=== PATIENT | male | born 1975 | race Caucasian/White ===

== ENCOUNTER 2017-02-09 00:45 | Observation (INO) | payer OTHER ==
[2017-02-09] MEDS ORDERED: TDAP ADULT 0.5 ML INJ (BOOSTRIX) IM ONE (01:30)
--- NOTE | 2017-02-09 02:24 | EDPHY ---
H & P Stated Complaint: stung last night by wasp, swelling and redness HPI/ROS: HPI CHIEF COMPLAINT: Left ankle swelling, redness, pain. HISTORY OF PRESENT ILLNESS: This patient very pleasant 41-year-old male significant past medical history for psoriasis, as well as hypertension, presents emergency room with left ankle pain, swelling, redness and warmth. No fever. Progressively got worse over the past 24 hours. He states he was walking dog something bit him on the medial aspect of his left ankle. It has progressively got worse. He now has a blister that popped. With yellow drainage. The redness has been streaking up his leg with worsening pain. No fever. Past Medical History: No medical history except for hypertension, psoriasis Past Surgical History: No recent surgery Social History: Denies daily use drugs alcohol tobacco products. Family History: Noncontributory ROS REVIEW OF SYSTEMS: A comprehensive 10 point review of systems is otherwise negative aside from elements mentioned in the history of present illness. Exam Constitutional triage nursing summary reviewed, vital signs reviewed, awake/ alert. Eyes normal conjunctivae and sclera, EOMI, PERRLA. HENT normal inspection, atraumatic, moist mucus membranes, no epistaxis, neck supple/ no meningismus, no raccoon eyes. Respiratory clear to auscultation bilaterally, normal breath sounds, no respiratory distress, no wheezing. Cardiovascular rate normal, regular rhythm, no murmur, no edema, distal pulses normal. Gastrointestinal soft, non-tender, no rebound, no guarding, normal bowel sounds, no distension, no pulsatile mass. Genitourinary no CVA tenderness. Musculoskeletal no midline vertebral tenderness, full range of motion, no calf swelling, no tenderness of extremities, no meningismus, good pulses, neurovascularly intact. Skin Left Ankle: Tender palpation over the medial aspect of the left ankle and swelling redness and warmth present. Foot is neurovascular intact good pulse. Blister present. That is ruptured. Yellow drainage. No crepitus on exam. Significant swelling present. Redness mild streaking up the left tibia. Neurologic awake, alert and oriented x 3, AAOx3, moves all 4 extremities equally, motor intact, sensory intact, CN II-XII intact, normal cerebellar, normal vision, normal speech. Psychiatric normal mood/affect. Heme/Lymph/Immune no lymphadenopathy. Differential Diagnosis: Includes but is not limited to in a particular order, left leg cellulitis, localized left ankle inflammation, left ankle cellulitis, strep infection, MRSA infection Medical Decision Making: Plan for this patient x-ray left ankle, blood work, IV vancomycin, possible admission. Re-evaluation: 0335AM: I did re-evaluate the patient. His x-ray does not show gas or does show soft tissue swelling. No osteo changes. Patient has redness, swelling and warmth and pain with elevated white count elevated CRP concerning for infection. He has received IV vancomycin here in emergency room. He will be admitted to the hospitalist service for a left lower extremity cellulitis. He is agreeable for this plan. No crepitus or gas seen on exam or x-ray. Dr. Reyes agrees for admission. Source: Patient - Personal History Current Tetanus Diphtheria and Acellular Pertussis (TDAP): Unsure - Medical/Surgical History Hx Asthma: No Hx Chronic Respiratory Disease: No Hx Diabetes: No Hx Cardiac Disease: No Hx Renal Disease: No Hx Cirrhosis: No Hx Alcoholism: No Hx HIV/AIDS: No Hx Splenectomy or Spleen Trauma: No Other PMH: htn, hiatal hernia - Social History Smoking Status: Never smoked Constitutional: Initial Vital Signs Temperature (C) 37.5 C 02/09/17 00:51 Heart Rate 102 H 02/09/17 00:51 Respiratory Rate 20 02/09/17 00:51 Blood Pressure 134/86 H 02/09/17 00:51 O2 Sat (%) 94 02/09/17 00:51 O2 Delivery Mode Room Air Allergies/Adverse Reactions: No Known Allergies Allergy (Unverified 02/09/17 00:48) Home Medications: Medication Instructions Recorded Aspirin 02/09/17 Nexium 02/09/17 Norvasc 02/09/17 Ramipril 02/09/17 Medical Decision Making - Data Points Laboratory Results: Laboratory Results 02/09/17 02:25 02/09/17 02:25 02/09/17 02/09/17 02:25 02:25 WBC 12.50 10^3/uL H 10^3/uL (3.80-9.50) RBC 4.35 10^6/uL L 10^6/uL (4.40-6.38) Hgb 15.1 g/dL g/dL (13.7-17.5) Hct 43.8 % % (40.0-51.0) MCV 100.7 fL H fL (81.5-99.8) MCH 34.7 pg H pg (27.9-34.1) MCHC 34.5 g/dL g/dL (32.4-36.7) RDW 12.6 % % (11.5-15.2) Plt Count 364 10^3/uL 10^3/uL (150-400) MPV 9.4 fL fL (8.7-11.7) Neut % (Auto) 75.7 % H % (39.3-74.2) Lymph % (Auto) 15.8 % % (15.0-45.0) Hart % (Auto) 6.3 % % (4.5-13.0) Eos % (Auto) 1.8 % % (0.6-7.6) Baso % (Auto) 0.2 % L % (0.3-1.7) Nucleat RBC Rel Count 0.0 % % (0.0-0.2) Absolute Neuts (auto) 9.46 10^3/uL H 10^3/uL (1.70-6.50) Absolute Lymphs (auto) 1.98 10^3/uL 10^3/uL (1.00-3.00) Absolute Monos (auto) 0.79 10^3/uL 10^3/uL (0.30-0.80) Absolute Eos (auto) 0.22 10^3/uL 10^3/uL (0.03-0.40) Absolute Basos (auto) 0.03 10^3/uL 10^3/uL (0.02-0.10) Absolute Nucleated RBC 0.00 10^3/uL 10^3/uL (0-0.01) Immature Gran % 0.2 % % (0.0-1.1) Immature Gran # 0.02 10^3/uL 10^3/uL (0.00-0.10) ESR 7 MM/HR MM/HR (0-15) Sodium 142 mEq/L mEq/L (134-144) Potassium 4.6 mEq/L mEq/L (3.5-5.2) Chloride 101 mEq/L mEq/L (97-110) Carbon Dioxide 25 mEq/l mEq/l (22-31) Anion Gap 16 mEq/L mEq/L (8-16) BUN 10 mg/dL mg/dL (7-23) Creatinine 0.9 mg/dL mg/dL (0.7-1.3) Estimated GFR > 60 Glucose 91 mg/dL mg/dL (70-100) Calcium 9.9 mg/dL mg/dL (8.5-10.4) C-Reactive Protein 25.2 mg/L H mg/L (<10.0) Medications Given: Discontinued Medications Diphtheria/Tetanus/Acell Pertussis (Boostrix) 0.5 ml IM .ONCE ONE Stop: 02/09/17 01:31 Last Admin: 02/09/17 01:34 Dose: 0.5 ml Vancomycin/Sodium Chloride (Vancomycin 1 Gm (Premix)) 250 mls @ 250 mls/hr IV EDNOW ONE PRN Reason: Protocol Stop: 02/09/17 03:28 Last Admin: 02/09/17 02:49 Dose: 250 mls Departure - Departure Disposition: [facility] Inpatient Acute Clinical Impression: Cellulitis, leg Qualifiers: Laterality: left Qualified Code(s): L03.116 - Cellulitis of left lower limb Condition: Good Referrals: V[facility] [Other] - As per Instructions
[2017-02-09] MEDS ORDERED: VANCOMYCIN HCL/NORMAL SALINE 250 ML IV ONE (02:29)
[2017-02-09 02:36] LABS: % IMMATURE GRANULYOCYTES 0.2 % (0.0-1.1); ABSOLUTE IMMATURE GRANULOCYTES 0.02 10^3/uL (0.00-0.10); ADD DIFF? NO; ADD MORPH? NO; ADD SCAN? NO; ATYPICAL LYMPHOCYTE FLAG 0 (0-99); FRAGMENT RBC FLAG 0 (0-99); HEMATOCRIT 43.8 % (40.0-51.0); HEMOGLOBIN 15.1 g/dL (13.7-17.5); LEFT SHIFT FLG 0 (0-99); LIPEMIA HEMOLYSIS FLAG 90 (0-99); MEAN CELL HEMOGLOBIN 34.7 pg (27.9-34.1); MEAN CELL HEMOGLOBIN CONCENTR. 34.5 g/dL (32.4-36.7); MEAN CELL VOLUME 100.7 fL (81.5-99.8); MEAN PLATELET VOLUME 9.4 fL (8.7-11.7); PLATELET CLUMPS FLAG 0 (0-99); PLATELET COUNT 364 10^3/uL (150-400); RED BLOOD CELL COUNT 4.35 10^6/uL (4.40-6.38); RED CELL DISTRIBUTION WIDTH 12.6 % (11.5-15.2)
[2017-02-09 02:53] LABS: ANION GAP 16 mEq/L (8-16); C-REACTIVE PROTEIN 25.2 mg/L (<10.0); CALCIUM 9.9 mg/dL (8.5-10.4); CARBON DIOXIDE 25 mEq/l (22-31); CHLORIDE 101 mEq/L (97-110); CREATININE 0.9 mg/dL (0.7-1.3); GLOMERULAR FILTRATION RATE > 60; GLUCOSE 91 mg/dL (70-100); POTASSIUM 4.6 mEq/L (3.5-5.2); SODIUM 142 mEq/L (134-144)
[2017-02-09 02:54] LABS: SEDIMENTATION RATE 7 MM/HR (0-15)
[2017-02-09] MEDS ORDERED: ONDANSETRON DISINTEGRATING 4 MG TAB PO PRN (04:55)
[2017-02-09] MEDS ORDERED: oxyCODONE IR 5 MG TAB PO PRN (04:55)
[2017-02-09] MEDS ORDERED: ONDANSETRON 4 MG/2 ML VIAL IVP PRN (04:55)
[2017-02-09] MEDS ORDERED: ACETAMINOPHEN 325 MG TAB PO PRN (04:55)
--- NOTE | 2017-02-09 05:54 | PDGENHP ---
History and Physical - Chief Complaint Leg swelling - History of Present Illness 41 yo M w/ HTN and psoriasis presenting with several days of progressive leg pain, redness, and swelling. Patient describes being stung in the LLE by what he thinks was a wasp about 4 days ago. Over the following days he noted some LLE swelling, which then exhibited rapidly spreading redness on the day of presentation. He also complains of pain and warmth on the leg, but denies systemic symptoms such as fever and chills. History Information - Allergies/Home Medication List Allergies/Adverse Reactions: No Known Allergies Allergy (Unverified 02/09/17 00:48) Home Medications: Aspirin 02/09/17 [Last Taken Unknown] Nexium 02/09/17 [Last Taken Unknown] Norvasc 02/09/17 [Last Taken Unknown] Ramipril 02/09/17 [Last Taken Unknown] I have personally reviewed and updated: family history, medical history - Past Medical History hypertension Additional medical history: Psoriasis - Surgical History Reports: no pertinent surgical hx - Family History Positive for: diabetes type II, stroke - Social History Smoking Status: Never smoked Drug Use: None Review of Systems ROS: 10pt was reviewed & negative except for what was stated in HPI & below Physical Exam Temp Pulse Resp BP Pulse Ox 37.1 C 89 16 122/90 H 96 02/09/17 04:31 02/09/17 04:31 02/09/17 04:31 02/09/17 04:31 02/09/17 04:31 Constitutional: no apparent distress, appears nourished Eyes: PERRL, EOMI Ears, Nose, Mouth, Throat: moist mucous membranes, no oral mucosal ulcers Cardiovascular: regular rate and rhythym, no murmur, rub, or gallop Respiratory: no respiratory distress, clear to auscultation Gastrointestinal: normoactive bowel sounds, soft, non-tender abdomen Skin: warm, erythema (LLE area of warmth and erythema with blister noted above L medial malleolus), rash (Various scaly, erythematous patches noted in extremities) Musculoskeletal: full muscle strength, no muscle tenderness Neurologic: AAOx3, CN II-XII Intact Psychiatric: interacting appropriately, not anxious Lab Data & Imaging Review 02/09/17 02:25 02/09/17 02:25 WBC 12.50 10^3/uL (3.80-9.50) H 02/09/17 02:25 RBC 4.35 10^6/uL (4.40-6.38) L 02/09/17 02:25 Hgb 15.1 g/dL (13.7-17.5) 02/09/17 02:25 Hct 43.8 % (40.0-51.0) 02/09/17 02:25 MCV 100.7 fL (81.5-99.8) H 02/09/17 02:25 MCH 34.7 pg (27.9-34.1) H 02/09/17 02:25 MCHC 34.5 g/dL (32.4-36.7) 02/09/17 02:25 RDW 12.6 % (11.5-15.2) 02/09/17 02:25 Plt Count 364 10^3/uL (150-400) 02/09/17 02:25 MPV 9.4 fL (8.7-11.7) 02/09/17 02:25 Neut % (Auto) 75.7 % (39.3-74.2) H 02/09/17 02:25 Lymph % (Auto) 15.8 % (15.0-45.0) 02/09/17 02:25 [place] % (Auto) 6.3 % (4.5-13.0) 02/09/17 02:25 Eos % (Auto) 1.8 % (0.6-7.6) 02/09/17 02:25 Baso % (Auto) 0.2 % (0.3-1.7) L 02/09/17 02:25 Nucleat RBC Rel Count 0.0 % (0.0-0.2) 02/09/17 02:25 Absolute Neuts (auto) 9.46 10^3/uL (1.70-6.50) H 02/09/17 02:25 Absolute Lymphs (auto) 1.98 10^3/uL (1.00-3.00) 02/09/17 02:25 Absolute Monos (auto) 0.79 10^3/uL (0.30-0.80) 02/09/17 02:25 Absolute Eos (auto) 0.22 10^3/uL (0.03-0.40) 02/09/17 02:25 Absolute Basos (auto) 0.03 10^3/uL (0.02-0.10) 02/09/17 02:25 Absolute Nucleated RBC 0.00 10^3/uL (0-0.01) 02/09/17 02:25 Immature Gran % 0.2 % (0.0-1.1) 02/09/17 02:25 Immature Gran # 0.02 10^3/uL (0.00-0.10) 02/09/17 02:25 ESR 7 MM/HR (0-15) 02/09/17 02:25 Sodium 142 mEq/L (134-144) 02/09/17 02:25 Potassium 4.6 mEq/L (3.5-5.2) 02/09/17 02:25 Chloride 101 mEq/L (97-110) 02/09/17 02:25 Carbon Dioxide 25 mEq/l (22-31) 02/09/17 02:25 Anion Gap 16 mEq/L (8-16) 02/09/17 02:25 BUN 10 mg/dL (7-23) 02/09/17 02:25 Creatinine 0.9 mg/dL (0.7-1.3) 02/09/17 02:25 Estimated GFR > 60 02/09/17 02:25 Glucose 91 mg/dL (70-100) 02/09/17 02:25 Calcium 9.9 mg/dL (8.5-10.4) 02/09/17 02:25 C-Reactive Protein 25.2 mg/L (<10.0) H 02/09/17 02:25 Imaging Review: LLE XR without clear abnormality. Visualized and Interpreted Chest x-ray results: Yes Assessment & Plan Assessment: 41 yo M with HTN and psoriasis presents with LLE cellulitis. Plan: 1. LLE Cellulitis - Overall appears mild with only SIRS criteria being WBC of 12.5. Per history, precipitating factor likely insect bite. Patient does have psoriasis leading to abnormal skin barrier but does not take any immunosuppressive drugs. - Vancomycin IV - Suspect can transition to PO rather quickly 2. Hypertension - Well controlled with home Ramipril and Norvasc 3. Psoriasis - Not on medications. Mildly active disease evidenced by multiple scaly, erythematous patches on extremities. Diet - Regular Code - Full Ppx - Low risk, ambulate TID Dispo - Admit to observation, expect stay of <2 MN noting lack of systemic symptoms.
[2017-02-09 05:59] LABS: % IMMATURE GRANULYOCYTES 0.5 % (0.0-1.1); ABSOLUTE IMMATURE GRANULOCYTES 0.07 10^3/uL (0.00-0.10); ADD DIFF? NO; ADD MORPH? NO; ADD SCAN? NO; ATYPICAL LYMPHOCYTE FLAG 0 (0-99); FRAGMENT RBC FLAG 0 (0-99); HEMATOCRIT 41.4 % (40.0-51.0); HEMOGLOBIN 14.1 g/dL (13.7-17.5); LEFT SHIFT FLG 0 (0-99); LIPEMIA HEMOLYSIS FLAG 90 (0-99); MEAN CELL HEMOGLOBIN 34.3 pg (27.9-34.1); MEAN CELL HEMOGLOBIN CONCENTR. 34.1 g/dL (32.4-36.7); MEAN CELL VOLUME 100.7 fL (81.5-99.8); MEAN PLATELET VOLUME 9.7 fL (8.7-11.7); PLATELET CLUMPS FLAG 20 (0-99); PLATELET COUNT 343 10^3/uL (150-400); RED BLOOD CELL COUNT 4.11 10^6/uL (4.40-6.38); RED CELL DISTRIBUTION WIDTH 12.6 % (11.5-15.2)
[2017-02-09 06:16] LABS: ANION GAP 13 mEq/L (8-16); CALCIUM 9.4 mg/dL (8.5-10.4); CARBON DIOXIDE 23 mEq/l (22-31); CHLORIDE 102 mEq/L (97-110); CREATININE 0.8 mg/dL (0.7-1.3); GLOMERULAR FILTRATION RATE > 60; GLUCOSE 93 mg/dL (70-100); POTASSIUM 4.3 mEq/L (3.5-5.2); SODIUM 138 mEq/L (134-144)
--- NOTE | 2017-02-09 11:19 | HOSPPROG ---
Hospitalist Progress Note Assessment/Plan: 41 yo M with HTN and psoriasis presents with LLE cellulitis. *Left lower extremity cellulitis after getting a wasp sting to his leg started on vancomycin will ask ID to weigh in *leukocytosis due to the above * hypertension bp 107/59 home meds resumed * psoriasis not on treatment *Plan: Dr Tellez to further evaluate Subjective: Bernard said his leg is steam press tender. Objective: Vital Signs Temp Pulse Resp BP Pulse Ox 37.0 C 79 20 107/69 93 02/09/17 08:00 02/09/17 08:00 02/09/17 08:00 02/09/17 08:00 02/09/17 08:00 Laboratory Results 02/09/17 05:34 02/09/17 05:34 02/08/17 02/09/17 02/10/17 05:59 05:59 05:59 Intake Total 450 Balance 450 - Physical Exam Constitutional: uncomfortable Eyes: PERRL Ears, Nose, Mouth, Throat: hearing normal Respiratory: no respiratory distress Skin: other (left lower extremity with erythema and swelling/ increase redness around the ankle area) Musculoskeletal: full muscle strength Neurologic: AAOx3 ICD10 Worksheet Patient Problems: Problems Problem Status Onset Cellulitis, leg Acute
--- NOTE | 2017-02-09 12:52 | GCON ---
[f rep st] CONSULTATION INFECTIOUS DISEASE CONSULTATION DATE OF CONSULTATION: 02/09/2017 Requesting provider is Luh Duran, nurse practitioner. REASON FOR CONSULTATION: Left lower extremity cellulitis. HISTORY OF PRESENT ILLNESS: The patient is a 41-year-old male with a past medical history of hypert ension and psoriasis, whom I am asked to see in consultation for left lower extremity cellulitis. T he patient describes being out walking his dogs on morning when he felt a sting to the righ t ankle. He believes this was from a flying insect. He put ice on the area after he had returned h ome. 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 Later, he developed blistering and swelling, with associated redness, warmth and tendern ess over the lower extremity, prompting his evaluation in the emergency department. Laboratory eval uation revealed a mild leukocytosis. The findings were felt to be consistent with a left lower extr emity cellulitis, and the patient was started on vancomycin. He does not have a prior history of sk in and soft tissue infection or MRSA. He does have psoriasis, for which he is on no immunosuppressi ve therapy. The erythema has receded significantly since admission, although he has persistent swel ling and tenderness. He has not experienced associated fevers, chills, or night sweats. There has been no nausea, vomiting or diarrhea. Given the above findings, I am now asked to assist in his carlito oing management. PAST MEDICAL HISTORY: Hypertension, psoriasis. PAST SURGICAL HISTORY: Unremarkable. CURRENT MEDICATIONS: Vancomycin 1.5 g IV q.12 hours, status post Tdap, ramipril 5 mg p.o. daily, Pr otonix 40 mg p.o. daily, Bystolic 5 mg p.o. daily, aspirin 81 mg p.o. daily. ALLERGIES: No known drug allergies. SOCIAL HISTORY: The patient does not smoke. He drinks at least [address] ug use history. FAMILY HISTORY: Father with pancreatitis and early-onset stroke. REVIEW OF SYSTEMS: Outside that noted in the HPI, the remainder of the 10-system review is unremark able except that the patient did have some inflammatory changes over his right eyelid, which have re sponded to topical therapies. PHYSICAL EXAMINATION: VITAL SIGNS: Temperature maximum 37.5, temperature current 36.9, heart rate 76, respiratory rate 18, blood pressure 118/76, oxygen saturation 96% on room air. GENERAL: The corwin soliz is an obese male in no acute distress. He appears nontoxic. HEENT: There is no scleral icte little, conjunctival injection, or conjunctival petechiae. There is minimal erythema with some skin fl aking over the eyelid on the right. There is no conjunctival drainage. There is no nasal discharge . The oropharynx shows no thrush. The mucous membranes are moist. The dentition is in fair repair . NECK: Supple, without lymphadenopathy or palpable thyromegaly. CHEST: Clear to auscultation bi laterally, without adventitious sounds. The respiratory effort is normal. CARDIOVASCULAR: Regular rate and rhythm, without murmurs, gallops, or rubs. ABDOMEN: Soft, nontender, nondistended. Ther e is no palpable organomegaly. Bowel sounds are present. MUSCULOSKELETAL: The left ankle shows ed esteban with some blistering and hemorrhagic appearance over the medial malleolar region, with the hemor rhagic appearance extending into the base of the foot. There is warmth with edema and minimal eryth esteban extending toward the knee. The erythema has receded significantly from the previously demarcate d lines. There is no palpable fluctuance. The area is tender to palpation. There is no pain with range of motion of the ankle joint. SKIN: See musculoskeletal; there are scattered plaques of psor iasis. There are no stigmata of endocarditis. The skin is warm and dry to touch. LYMPHATICS: No cervical or supraclavicular nodes. There are no areas of lymphangitis in the left lower extremity. NEUROLOGIC: The patient is alert and interacts appropriately with the examiner. Cranial nerves 2- 12 are grossly intact. Sensation was grossly intact. Muscle tone and bulk are normal. LABORATORY DATA: White blood cell count 13.8, hematocrit 41.4, platelets 343, neutrophils 77%. Ser um creatinine is 0.8. Blood cultures x2 sets are pending. Ankle x-ray shows no abnormalities other than soft tissue swelling. IMPRESSION: Left lower extremity cellulitis after probable insect sting: He may have some element of hypersensitivity, but suspect there is superimposed cellulitis. Most likely, this will be due to beta-hemolytic streptococci or Staphylococcus aureus. No purulence or prior history of MRSA to sug gest this as an etiology. Clinically, he is responding currently to vancomycin therapy. RECOMMENDATIONS: 1. Ancef 2 g IV q.8 hours. 2. Discontinue vancomycin. 3. Continue lower extremity elevation. 4. Continue to follow the clinical response to the above measures. I think he requires continued h ospitalization currently for IV antibiotic therapy, with repeat assessment and plan for tomorrow. Laila vargas may be able to transition to oral antibiotic therapy in the next 24-48 hours. Thank you for this consultation. We will continue to follow the patient with you. /[id number]/MODL
[2017-02-09] MEDS: ceFAZolin 2 GM/DEXTROSE 100 ML IV SCH ×2 (13:00→22:19)
[2017-02-09] MEDS: NEO/POLYMYX B SULF/DEXAMETH 5 ML OPHT.BTL RTEYE SCH ×3 (13:08→22:19)
[2017-02-09] MEDS: RAMIPRIL 5 MG CAP PO SCH (13:08)
[2017-02-09] MEDS: NEBIVOLOL HCL 5 MG TAB PO SCH (13:09)
--- NOTE | 2017-02-09 14:22 | ASMTCASEMG ---
Living Arrangements What is your living Answers: With Spouse arrangement? Who do you live with? Discharge Plan Comments Coordination Status Comments Notes: Pt. is a 41-year-old man admitted w/ L leg cellulitis. May have been stung by a flying insect that contributed to cellulitis. Hx. HTN and psoriasis. Pt. lives w/ his , Angela. Likely to d/c home independenly when ready. CM available should d/c POC change. Date Signed: 02/09/2017 02:21 PM Electronically Signed By:Leeann Jennings
[2017-02-09] MEDS ORDERED: VANCOMYCIN 1.5 GM in D5W 250 ML IV SCH (15:00)
[2017-02-09 22:57] VITALS: O2SAT 95
[2017-02-10] MEDS: NEO/POLYMYX B SULF/DEXAMETH 5 ML OPHT.BTL RTEYE SCH ×4 (02:11→13:49)
[2017-02-10] MEDS: ceFAZolin 2 GM/DEXTROSE 100 ML IV SCH (05:24)
[2017-02-10 08:20] VITALS: BP 110/77; PULSE 64; RESP 14; TEMP 97.4
[2017-02-10] MEDS: NEBIVOLOL HCL 5 MG TAB PO SCH (08:29)
[2017-02-10] MEDS: RAMIPRIL 5 MG CAP PO SCH (08:30)
[2017-02-10] MEDS ORDERED: PANTOPRAZOLE SODIUM 40 MG TAB PO SCH (09:00)
[2017-02-10] MEDS ORDERED: NON-FORMULARY NEW DRUG (Esomeprazole Mag Trihydrate [Nexium] 40 MG) PO SCH (09:00)
[2017-02-10] MEDS ORDERED: ASPIRIN EC 81 MG TAB PO SCH (09:00)
--- NOTE | 2017-02-10 10:17 | HOSPPROG ---
Hospitalist Progress Note Assessment/Plan: 41 yo M with HTN and psoriasis presents with LLE cellulitis. *Left lower extremity cellulitis with some associated hypersensitivity after getting a wasp sting to his leg Ancef much improved/has a small blister on the talus side *leukocytosis due to the above * hypertension bp 110/77 home meds resumed * psoriasis not on treatment *Plan: will await input from Dr Tellez/ kimber pedro later today or tomorrow Subjective: Bernard is feeling much better today/ has no complaints. Objective: Vital Signs Temp Pulse Resp BP Pulse Ox 36.3 C 64 14 110/77 95 02/10/17 08:00 02/10/17 08:00 02/10/17 08:00 02/10/17 08:00 02/10/17 08:00 Laboratory Results 02/09/17 05:34 02/09/17 05:34 02/09/17 02/10/17 02/11/17 05:59 05:59 05:59 Intake Total 450 Balance 450 - Physical Exam Constitutional: no apparent distress, appears nourished, not in pain Eyes: PERRL Ears, Nose, Mouth, Throat: hearing normal Cardiovascular: regular rate and rhythym Respiratory: no respiratory distress Skin: warm, other (left lower ext w less swelling, less redness, small blister on talus side) Neurologic: AAOx3 Psychiatric: interacting appropriately, not anxious ICD10 Worksheet Patient Problems: Problems Problem Status Onset Cellulitis, leg Acute
[2017-02-10] MEDS ORDERED: cefTRIAXone 2 GM in D5W 50 ML IV SCH (12:30)
--- NOTE | 2017-02-10 13:20 | PCMIDPN ---
Assessment/Plan: Assessment/Plan: * Left lower extremity cellulitis: Significant clinical improvement with elevation and IV antibiotics. Will give single dose of ceftriaxone for long- acting affect prior to discharge. Plan to begin Augmentin 875 twice daily x7 days tomorrow. Side effects of Augmentin discussed with patient today. Will arrange for follow-up in my office later this week. 02/10/17 13:17 02/10/17 13:18 Subjective: Patient feels significantly improved with less ankle swelling and pain. Lower leg significantly softer. Objective: Vital Signs Temp Pulse Resp BP Pulse Ox 36.3 C 64 14 110/77 95 02/10/17 08:00 02/10/17 08:00 02/10/17 08:00 02/10/17 08:00 02/10/17 08:00 Laboratory Results 02/09/17 05:34 02/09/17 05:34 02/09/17 02/10/17 02/11/17 05:59 05:59 05:59 Intake Total 450 Balance 450 ESR 7 MM/HR (0-15) 02/09/17 02:25 C-Reactive Protein 25.2 mg/L (<10.0) H 02/09/17 02:25 Cefazolin # 2 Blood cultures x2 no growth - Physical Exam General Appearance: alert, no apparent distress Extremities: inflammation (Left lower extremity with significant decrease in edema and erythema; few small clear bulla over medial ankle; no pain with range of motion of ankle) Abdomen: non-tender, No distended Lymphatic: other (No left lower extremity lymphangitis) ICD10 Worksheet Patient Problems: Problems Problem Status Onset Cellulitis, leg Acute
--- NOTE | 2017-02-10 13:37 | ASDISCHSUM ---
Discharge Information Plan Status:Home with No Needs Medically Cleared to Leave:02/10/2017 Discharge Date:02/10/2017 CM D/C Disposition:Home, Routine, Self-Care ADT D/C Disposition:Home, Routine, Self-Care Projected Discharge Date:02/10/2017 02:00 AM Transportation at D/C:Family Discharge Delay Reason: Follow-Up Date:02/10/2017 02:00 AM Discharge Slot: Final Diagnosis:LLE Cellulitis Placement Information Patient Contact Information Contact Name:IVETTE Relationship: Address:[address] Home Phone: City:[place] Alternate Phone: State/Zip Code:[place] [address] Email: Financial Information Financial Class:[facility] Primary Plan Desc:[facility] Primary Plan Number:[id number] Secondary Plan Desc: Secondary Plan Number: Assessment Information [facility] Initial CM Assessment Living Arrangements What is your living Answers: With Spouse arrangement? Who do you live with? Discharge Plan Comments Coordination Status Comments Notes: Pt. is a 41-year-old man admitted w/ L leg cellulitis. May have been stung by a flying insect that contributed to cellulitis. Hx. HTN and psoriasis. Pt. lives w/ his , Angela. Likely to d/c home independenly when ready. CM available should d/c POC change. Date Signed: 02/09/2017 02:21 PM Electronically Signed By:Leeann Jennings Intervention Information
--- NOTE | 2017-02-10 13:37 | ASMTCMCOM ---
CM Note CM Note Notes: Patient has been discharged and will be going home with and will be on Augmentin PO at home. Will follow up with ID as out-pt. no other discharge needs. Date Signed: 02/10/2017 01:37 PM Electronically Signed By:Vee Ferrell
--- NOTE | 2017-02-10 14:00 | GDS ---
[f rep st] DISCHARGE SUMMARY DISCHARGE DIAGNOSES: 1. Left lower extremity cellulitis with associated hypersensitivity after getting a wasp sting. 2. Leukocytosis. 3. Hypertension. 4. Psoriasis. CONSULTATION DURING STAY: Dr. Paulo Tellez. BRIEF HISTORY: The patient is a 41-year-old gentleman with a history of hypertension and psoriasis. He was out walking his dogs, when he felt a sting to his ankle, he put ice when he returned home. He works as a repair mechanic and started to have some significant swelling after standing on his feet. He also noted some blistering. He was admitted and started on vancomycin. He was subsequently seen by Dr. Paulo Tellez, who recommended that he be on cefazolin. He was treated with this with marked improvement. Today, he will be discharged home with Augmentin and further follow up with Dr. Tellez in the outpatient setting. HOSPITAL COURSE: 1. Left lower extremity cellulitis with associated hypersensitivity, markedly improved. 2. Leukocytosis, due to this. 3. Hypertension, blood pressure is 110/77. 4. Psoriasis, not on any treatment. DISCHARGE CONDITION: Stable. Blood pressure is 110/77, O2 sat on room air 95% , respiratory rate is 14, pulse is 64, temperature is 36.3 Celsius. MEDICATIONS AT DISCHARGE: Please see the EMR. DISCHARGE INSTRUCTIONS: 1. To start Augmentin tomorrow. 2. To follow up with Dr. Tellez next week. /[id number]/MODL MTDD
== END 2017-02-10 14:05 | disposition home or self-care (01) ==
LOC: INTOOBSV 03:34 → F3E 04:21
PROVIDERS: ADMIT Student in an Organized Health Care Education/Training Program; ATTEND Student in an Organized Health Care Education/Training Program
DX: L03.116 Cellulitis of left lower limb (principal); T63.461A Toxic effect of venom of wasps, accidental (unintentional), initial encounter; I10 Essential (primary) hypertension; L40.9 Psoriasis, unspecified
CPT/HCPCS: 73610; 90471; 96365; 99285; G0378; J0690; J0696; J3370